=== PATIENT | male | born 1950 | race Caucasian/White ===

== ENCOUNTER 2017-09-15 09:31 | Inpatient (IN) | payer OTHER, BC ==
[~2017-09-15] VITALS: Ht 175.3 cm; Wt 86.8 kg
[2017-09-15] MEDS ORDERED: FLO4 PO (09:55)
[2017-09-15 10:52] LABS: BASOPHIL % 0.4 % (0-2); PLATELET COUNT 162 x10^3mcL (130-400); RED CELL DISTRIBUTION WIDTH 13.8 % (11.5-14.5)
[2017-09-15 11:00] LABS: CALCIUM 8.2 mg/dL (8.5-10.1); CARBON DIOXIDE 26.2 mmol/L (21-32); CHLORIDE SERUM 100 mmol/L (98-107); CREATININE SERUM 0.9 mg/dL (0.7-1.3); GFR1 > 60 mL/min; GLUCOSE SERUM 103 mg/dL (74-106); POTASSIUM SERUM 3.7 mmol/L (3.5-5.1); SODIUM SERUM 135 mmol/L (136-145)
[2017-09-15 11:12] LABS: ALKALINE PHOSPHATASE 60 U/L (46-116); ALT/SGPT 36 U/L (16-63); AST/SGOT 43 U/L (15-37); BILIRUBIN TOTAL 0.37 mg/dL (0.20-1.00); TOTAL PROTEIN, SERUM 6.5 g/dL (6.4-8.2)
[2017-09-15 11:14] LABS: CK-MB 0.8 ng/mL (0-3.6)
[2017-09-15 13:22] VITALS: BP 137/65
[2017-09-15 13:28] LABS: MAGNESIUM 1.8 mg/dL (1.8-2.4); PHOSPHOROUS 3.6 mg/dL (2.5-4.9)
[2017-09-15 13:30] LABS: CHOLESTEROL/HDL RATIO 4.2
[2017-09-15 13:34] LABS: T3 TOTAL 0.56 ng/mL
[2017-09-15 13:39] LABS: FREE T4 0.97 ng/dL (0.76-1.46); FREE THYROXINE INDEX 1.7 ug/dL (1.4-4.5); T4(THYROXINE) 5.3 ug/dL (4.7-13.3)
[2017-09-15 13:55] VITALS: Ht 175.3 cm; Wt 86.8 kg
[2017-09-15 14:35] VITALS: BP 102/56
[2017-09-15 15:21] LABS: UA SPECIFIC GRAVITY >=1.030 (1.005-1.035); microscopic required? YES; urine erythrocyte NEGATIVE (NEGATIVE)
[2017-09-15 16:05] LABS: AMPHETAMINE QUAL UR NONE DETECTED (NEG <=1000)
[2017-09-15 18:11] VITALS: BP 127/68
[2017-09-15 20:53] VITALS: BP 150/76
[2017-09-16 07:32] LABS: BASOPHIL % 0.3 % (0-2); PLATELET COUNT 139 x10^3mcL (130-400); RED CELL DISTRIBUTION WIDTH 13.8 % (11.5-14.5)
[2017-09-16 07:44] LABS: CALCIUM 7.8 mg/dL (8.5-10.1); CARBON DIOXIDE 26.1 mmol/L (21-32); CHLORIDE SERUM 101 mmol/L (98-107); CREATININE SERUM 0.7 mg/dL (0.7-1.3); GFR1 > 60 mL/min; GLUCOSE SERUM 89 mg/dL (74-106); POTASSIUM SERUM 3.7 mmol/L (3.5-5.1); SODIUM SERUM 135 mmol/L (136-145)
[2017-09-16 10:02] VITALS: BP 101/66
[2017-09-16 14:40] VITALS: BP 123/72
[2017-09-16 17:15] VITALS: BP 115/64
[2017-09-16 21:05] VITALS: BP 107/52
[2017-09-17 05:01] VITALS: BP 107/61
[2017-09-17 06:47] LABS: BASOPHIL % 0.2 % (0-2); PLATELET COUNT 143 x10^3mcL (130-400); RED CELL DISTRIBUTION WIDTH 13.6 % (11.5-14.5)
[2017-09-17 07:10] LABS: CALCIUM 8.3 mg/dL (8.5-10.1); CARBON DIOXIDE 27.3 mmol/L (21-32); CHLORIDE SERUM 102 mmol/L (98-107); CREATININE SERUM 0.7 mg/dL (0.7-1.3); GFR1 > 60 mL/min; GLUCOSE SERUM 95 mg/dL (74-106); POTASSIUM SERUM 3.6 mmol/L (3.5-5.1); SODIUM SERUM 137 mmol/L (136-145)
[2017-09-17 08:13] VITALS: BP 106/63
[2017-09-17 13:08] VITALS: BP 131/74
[2017-09-17] MEDS ORDERED: TAM75 PO (15:24)
[2017-09-17] MEDS ORDERED: ECO81 PO (15:25)
[2017-09-17] MEDS ORDERED: ATORVASTATIN CA40 M1 PO (15:25)
[2017-09-17] MEDS ORDERED: TES100 PO (15:26)
[2017-09-17] MEDS ORDERED: LAC PO (15:26)
[2017-09-17] MEDS ORDERED: THERAGRAN-M1 TA4 PO (15:27)
[2017-09-17] MEDS ORDERED: THI100 PO (15:27)
[2017-09-17] MEDS ORDERED: LEVAQUIN750 MG PO ×2 (15:57→15:59)
[2017-09-17] MEDS ORDERED: CLEOCIN HCL300 MG PO ×2 (15:57→16:08)
[2017-09-17 16:33] VITALS: BP 131/74
[2017-09-17 16:50] VITALS: BP 111/73
== END 2017-09-17 18:10 | disposition home or self-care (01) | DRG 177 ==
LOC: ED 09:31 → EDBD 09:31 → DU 11:48
PROVIDERS: Emergency Medicine; Family Medicine
DX: J69.0 Pneumonitis due to inhalation of food and vomit (principal); N17.0 Acute kidney failure with tubular necrosis; J96.01 Acute respiratory failure with hypoxia; E87.1 Hypo-osmolality and hyponatremia; E44.0 Moderate protein-calorie malnutrition; I42.2 Other hypertrophic cardiomyopathy; J98.01 Acute bronchospasm; N40.0 Benign prostatic hyperplasia without lower urinary tract symptoms; S09.90XA Unspecified injury of head, initial encounter; G90.8 Other disorders of autonomic nervous system; E78.5 Hyperlipidemia, unspecified; R73.03 Prediabetes; E02 Subclinical iodine-deficiency hypothyroidism; F10.20 Alcohol dependence, uncomplicated; Y90.9 Presence of alcohol in blood, level not specified; J10.1 Influenza due to other identified influenza virus with other respiratory manifestations; E78.00 Pure hypercholesterolemia, unspecified; Z68.28 Body mass index [BMI] 28.0-28.9, adult
CPT/HCPCS: 36600; 83880; 84439; 97110-GP; 97116-GP; 97530-GP; G0480; J0456; J0696; J1885; J1956; J2405; J3490; J7030; J7050; J7613; J7620; J7644; Q0092; Q0163